=== PATIENT | female | born 2005 | race Two or more races ===

== ENCOUNTER 2024-09-16 09:33 | Emergency (ER) | payer OTHER, MEDICAID ==
[~2024-09-16] VITALS: Ht 157.5 cm; Wt 52.7 kg
[2024-09-16 09:55] LABS: Basophils # (auto) 0 10 ^3/uL (0-0.2); Basophils % (auto) 0.4 % (0.0-2.0); Eosinophils # (auto) 0 10 ^3/uL (0-0.8); Eosinophils % (auto) 0.3 % (0.0-7.0); Hematocrit 37.2 % (36.0-46.0); Lymphocytes # (auto) 1.8 10 ^3/uL (0.4-5.4); Lymphocytes % (auto) 23.7 % (10.0-50.0); Mean Corpuscular Hemoglobin 29.2 pg (28.0-32.0); Mean Corpuscular Volume 83.4 fL (80.0-100.0); Monocytes # (auto) 0.6 10 ^3/uL (0-1.3); Monocytes % (auto) 7.6 % (0.0-12.0); Neutrophils # (auto) 5.2 10 ^3/uL (1.6-8.6); Nucleated Red Blood Cells % 0.1 %; Platelet Count (auto) 176 10^3/uL (140-450); Red Blood Cells 4.46 10^6/uL (4.0-5.20); Red Cell Distribution Width 14.4 % (11.8-14.3); White Blood Cell 7.7 10^3/uL (4.4-10.8)
[2024-09-16 10:04] LABS: Chloride 105 mmol/L (98-107); Potassium 3.9 mmol/L (3.5-5.1); Sodium 138 mmol/L (136-145)
[2024-09-16 10:05] LABS: Anion Gap 8 (5-15); Carbon Dioxide 25 mmol/L (20-31)
[2024-09-16 10:06] LABS: Calcium 9.6 mg/dL (8.7-10.4)
[2024-09-16 10:10] LABS: Glucose 97 mg/dL (74-106)
[2024-09-16 10:11] LABS: BUN/Creatinine Ratio 12.1 (10.0-20.0); Blood Urea Nitrogen 7 mg/dL (9-23)
[2024-09-16 10:14] LABS: Urine Bacteria None Seen /hpf (None Seen)
[2024-09-16 10:24] LABS: Urine Blood Negative /uL (Negative); Urine Clarity Clear (Clear); Urine Color Light-Yellow (Yellow); Urine Mucus FEW (None Seen); Urine Protein, UAD Negative (Negative); Urine Specific Gravity 1.021 (1.001-1.035); Urine Squamous Epithelial Cell FEW /hpf (<5); Urine Urobilinogen Normal (Negative); Urine WBC 2 /HPF (0-5)
[2024-09-16 10:49] VITALS: BP 108/52; PULSE 70; RESP 16; TEMP 98.6; O2SAT 100
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
[2024-09-16] MEDS ORDERED: DOXY25TA33 PO (10:54)
[2024-09-16] MEDS ORDERED: ACET-1881 PO (10:54)
[2024-09-16] MEDS ORDERED: PYRI25TA23 PO (10:54)
== END 2024-09-16 10:57 | disposition home or self-care (01) ==
LOC: ER 09:33
DX: O9A.211 Injury, poisoning and certain other consequences of external causes complicating pregnancy, first trimester (principal); O26.891 Other specified pregnancy related conditions, first trimester; R10.30 Lower abdominal pain, unspecified; Z3A.00 Weeks of gestation of pregnancy not specified; Z79.899 Other long term (current) drug therapy; V49.49XA Driver injured in collision with other motor vehicles in traffic accident, initial encounter; Y93.89 Activity, other specified; Y92.89 Other specified places as the place of occurrence of the external cause; Y99.8 Other external cause status
CPT/HCPCS: 36415; 80048; 81001; 81025; 85025

== ENCOUNTER → 2024-09-22 | Outpatient (CLI) | payer OTHER, MEDICAID ==
[~2024-09-22] MED LIST: ACET-1881 PO; DOXY25TA33 PO; PYRI25TA23 PO
[2024-09-22 11:13] LABS: Basophils # (auto) 0 10 ^3/uL (0-0.2); Basophils % (auto) 0.3 % (0.0-2.0); Eosinophils # (auto) 0 10 ^3/uL (0-0.8); Eosinophils % (auto) 0.2 % (0.0-7.0); Hematocrit 40.7 % (36.0-46.0); Hemoglobin 13.7 g/dL (12.2-16.2); Lymphocytes # (auto) 1.5 10 ^3/uL (0.4-5.4); Lymphocytes % (auto) 16.5 % (10.0-50.0); Mean Corpuscular Hemoglobin 28.2 pg (28.0-32.0); Mean Corpuscular Hgb Conc. 33.6 g/dL (32.0-36.0); Mean Corpuscular Volume 84.1 fL (80.0-100.0); Monocytes # (auto) 0.5 10 ^3/uL (0-1.3); Monocytes % (auto) 5.7 % (0.0-12.0); Neutrophils % (auto) 77.3 % (37.0-80.0); Platelet Count (auto) 173 10^3/uL (140-450); Red Blood Cells 4.84 10^6/uL (4.0-5.20); Red Cell Distribution Width 14.8 % (11.8-14.3)
[2024-09-22 11:25] LABS: Alanine Aminotransferase 16 U/L (7-40); Albumin 4.6 g/dL (3.2-4.8); Alkaline Phosphatase 64 U/L (46-116); Anion Gap 8 (5-15); Bilirubin, Total 0.8 mg/dL (0.2-1.0); Calcium 9.7 mg/dL (8.7-10.4); Carbon Dioxide 24 mmol/L (20-31); Chloride 104 mmol/L (98-107); Glucose 90 mg/dL (74-106); Potassium 4.2 mmol/L (3.5-5.1); Total Protein 7.2 g/dL (5.7-8.2)
[2024-09-22 11:27] LABS: Aspartate Aminotransferase 13 U/L (13-40); Blood Urea Nitrogen 7 mg/dL (9-23); Sodium 136 mmol/L (136-145)
[2024-09-22 11:33] LABS: Thyroid Stimulating Hormone 0.54 uIU/mL (0.55-4.78)
== END | disposition home or self-care (01) ==
LOC: LAB 10:47
PROVIDERS: ATTEND Nurse Practitioner Family
DX: Z32.01 Encounter for pregnancy test, result positive (principal)
CPT/HCPCS: 36415; 80053; 84443; 84702; 85025

== ENCOUNTER → 2024-10-14 | Outpatient (CLI) | payer OTHER, MEDICAID ==
[2024-10-14 11:24] LABS: Basophils # (auto) 0 10 ^3/uL (0-0.2); Basophils % (auto) 0.3 % (0.0-2.0); Eosinophils # (auto) 0 10 ^3/uL (0-0.8); Eosinophils % (auto) 0.4 % (0.0-7.0); Hematocrit 39.2 % (36.0-46.0); Hemoglobin 13.5 g/dL (12.2-16.2); Lymphocytes # (auto) 1.4 10 ^3/uL (0.4-5.4); Lymphocytes % (auto) 18.4 % (10.0-50.0); Mean Corpuscular Hemoglobin 29.2 pg (28.0-32.0); Mean Corpuscular Hgb Conc. 34.4 g/dL (32.0-36.0); Mean Corpuscular Volume 85.1 fL (80.0-100.0); Monocytes # (auto) 0.4 10 ^3/uL (0-1.3); Monocytes % (auto) 5.5 % (0.0-12.0); Neutrophils # (auto) 5.6 10 ^3/uL (1.6-8.6); Neutrophils % (auto) 75.4 % (37.0-80.0); Nucleated Red Blood Cells % 0.1 %; Platelet Count (auto) 153 10^3/uL (140-450); Red Blood Cells 4.61 10^6/uL (4.0-5.20); Red Cell Distribution Width 15.7 % (11.8-14.3); White Blood Cell 7.4 10^3/uL (4.4-10.8)
[2024-10-14 11:38] LABS: Amphetamine Screen, Urine Neg (NEGATIVE); Barbiturate Scree,Urine Neg (NEGATIVE); Benzodiazephine Screen, Urine Neg (NEGATIVE); Cannabinoid Screen, Urine Neg (NEGATIVE); Cocaine Screen, Urine Neg (NEGATIVE); Opiate Scree,Urine Neg (NEGATIVE); Phencyclidine Screen, Urine Neg (NEGATIVE)
[2024-10-16 05:08] LABS: Chlamydia Trachomatis, NAA Negative (Negative); Neisseria gonorrhoeae, NAA Negative (Negative)
== END | disposition home or self-care (01) ==
LOC: LAB 10:03
PROVIDERS: ATTEND Obstetrics & Gynecology
DX: Z34.01 Encounter for supervision of normal first pregnancy, first trimester (principal); Z72.51 High risk heterosexual behavior; Z3A.12 12 weeks gestation of pregnancy
CPT/HCPCS: 36415; 80307; 83036; 84144; 84702; 85025; 86703; 86762; 86780; 86850; 86900; 86901; 87086; 87340

== ENCOUNTER 2025-02-09 06:34 | Outpatient (CLI) | payer OTHER, MEDICAID ==
[2025-02-09 06:58] LABS: Hematocrit 33.4 % (36.0-46.0); Hemoglobin 11.7 g/dL (12.2-16.2); Mean Corpuscular Hemoglobin 29.9 pg (28.0-32.0); Mean Corpuscular Volume 85.3 fL (80.0-100.0); Nucleated Red Blood Cells % 0.0 %
[2025-02-09 07:11] LABS: Alanine Aminotransferase 14 U/L (7-40); Alkaline Phosphatase 104 U/L (46-116); Anion Gap 10 (5-15); BUN/Creatinine Ratio 13.0 (10.0-20.0); Carbon Dioxide 23 mmol/L (20-31); Chloride 105 mmol/L (98-107); Glucose 88 mg/dL (74-106); Potassium 4.1 mmol/L (3.5-5.1); Sodium 138 mmol/L (136-145); Total Protein 7.2 g/dL (5.7-8.2)
[2025-02-09 07:12] LABS: Albumin 4.1 g/dL (3.2-4.8); Bilirubin, Total 0.4 mg/dL (0.2-1.0)
[2025-02-09 07:16] LABS: Blood Urea Nitrogen 7 mg/dL (9-23); Calcium 8.6 mg/dL (8.7-10.4)
[2025-02-11 02:07] LABS: Chlamydia Trachomatis, NAA Negative (Negative); Neisseria gonorrhoeae, NAA Negative (Negative)
== END 2025-02-09 17:00 | disposition home or self-care (01) ==
LOC: LAB 06:34
PROVIDERS: ATTEND Obstetrics & Gynecology
DX: Z34.00 Encounter for supervision of normal first pregnancy, unspecified trimester (principal); Z3A.00 Weeks of gestation of pregnancy not specified
CPT/HCPCS: 36415; 80053; 82951; 85025; 86780; 86850; 86900; 86901

== ENCOUNTER 2025-03-10 09:12 | Observation (INO) | payer OTHER, MEDICAID ==
--- NOTE | 2025-03-10 10:55 | DVH ---
OB ULTRASOUND, LIMITED CLINICAL INDICATION: nuchal cord TECHNIQUE: Multiple grayscale ultrasound and M-mode images were obtained of the pelvis for evaluation of intrauterine . COMPARISON: None FINDINGS: A single living fetus is seen in cephalic presentation. Biophysical profile: 12/26 breathin movements: 2 tone: 2 Amniotic fluid: 2 Placenta: Anterior. Possible placental lakes are seen. Amniotic fluid: Visibly normal. HEAVENLY 19.3 cm heart rate: 134 beats/min. A complete anatomic survey was not performed on this exam. There appears to be a nuchal cord. IMPRESSION: 1. Biophysical profile: 12/26. 2. There appears to be a nuchal cord. 3. A few small placental lakes.
[2025-03-10 11:03] LABS: Hematocrit 33.9 % (36.0-46.0); Hemoglobin 11.1 g/dL (12.2-16.2); Mean Corpuscular Hemoglobin 27.0 pg (28.0-32.0); Mean Corpuscular Volume 82.5 fL (80.0-100.0); Nucleated Red Blood Cells % 0.1 %
[2025-03-10 11:12] LABS: Urine Protein, UAD TRACE (Negative)
[2025-03-10 11:14] LABS: Protein, Urine 20.4 mg/dL (1-14)
[2025-03-10] MEDS ORDERED: PREN-96 PO (11:16)
[2025-03-10 11:18] LABS: Alanine Aminotransferase 17 U/L (7-40); Albumin 4.1 g/dL (3.2-4.8); Alkaline Phosphatase 151 U/L (46-116); Anion Gap 10 (5-15); BUN/Creatinine Ratio 10.7 (10.0-20.0); Blood Urea Nitrogen 6 mg/dL (9-23); Calcium 8.9 mg/dL (8.7-10.4); Carbon Dioxide 24 mmol/L (20-31); Chloride 105 mmol/L (98-107); Glucose 87 mg/dL (74-106); Potassium 4.3 mmol/L (3.5-5.1); Sodium 139 mmol/L (136-145); Total Protein 7.2 g/dL (5.7-8.2)
[2025-03-10 11:19] LABS: Bilirubin, Total 0.4 mg/dL (0.2-1.0)
[2025-03-10 11:24] LABS: INR 0.9 (0.9-1.15); Partial Thromboplastin Time 24.7 SEC (24.5-34.5); Prothrombin Time 9.6 sec (9.3-11.8)
[2025-03-10 11:27] LABS: Uric Acid 3.4 mg/dL (3.1-7.8)
--- NOTE | 2025-03-10 12:43 | DVHDS2 ---
Physician Discharge Progress N Final Diagnosis: testing for NCx1 ruled out preeclampsia Operations or Procedures: Operations or Procedures 19yo IUP@33.0wks, pt send down from Dr. Parker's office for NST/BPP for NCx1 and RUQ pain/bilateral shoulder pain. +FM, denies UCs/LOF/VB/vision changes/TELLES. VSS, normotensive, per RN NST reactive per RN FKC/PTL/PreE precautions reviewed Dr. Parker consulted, agrees with POC. Laboratory Tests Test 03/10/25 10:00 03/10/25 10:44 Range/Units Urine Color Yellow Yellow Urine Clarity Clear Clear Urine pH 6.5 5.0-9.0 Urine Specific [place] 1.020 1.001-1.035 Urine Protein Trace H Negative Urine Ketones Negative Negative Urine Blood Negative Negative /uL Urine Nitrite Negative Negative Urine Bilirubin Negative Negative Urine Urobilinogen Normal Negative mg/dL Urine Leukocyte Esterase 2+ Negative /uL Urine RBC 3 0 - 4 /hpf Urine Microscopic WBC 11 H 0-5 /HPF Urine Squamous Epithelial Cells Mod <5 /hpf Urine Bacteria Many H None Seen /hpf Urine Mucus Few None Seen Urine Creatinine 124.70 30.0-125.0 mg/dL Urine Protein/Creatinine Ratio 0.16 Urine Glucose 2+ H Normal mg/dL Urine Total Protein 20.4 H 1-14 mg/dL White Blood Count 6.3 4.4-10.8 10^3/uL Red Blood Count 4.10 4.0-5.20 10^6/uL Hemoglobin 11.1 L 12.2-16.2 g/dL Hematocrit 33.9 L 36.0-46.0 % Mean Corpuscular Volume 82.5 80.0-100.0 fL Mean Corpuscular Hemoglobin 27.0 L 28.0-32.0 pg Mean Corpuscular Hemoglobin Concent 32.7 32.0-36.0 g/dL Red Cell Distribution Width 13.3 11.8-14.3 % Platelet Count 188 140-450 10^3/uL Mean Platelet Volume 9.7 6.9-10.8 fL Neutrophils (%) (Auto) 69.0 37.0-80.0 % Lymphocytes (%) (Auto) 23.0 10.0-50.0 % Monocytes (%) (Auto) 7.4 0.0-12.0 % Eosinophils (%) (Auto) 0.3 0.0-7.0 % Basophils (%) (Auto) 0.3 0.0-2.0 % Neutrophils # (Auto) 4.3 1.6-8.6 10 ^3/uL Lymphocytes # (Auto) 1.4 0.4-5.4 10 ^3/uL Monocytes # (Auto) 0.5 0-1.3 10 ^3/uL Eosinophils # (Auto) 0 0-0.8 10 ^3/uL Basophils # (Auto) 0 0-0.2 10 ^3/uL Nucleated Red Blood Cells 0.1 % Prothrombin Time 9.6 9.3-11.8 sec Prothrombin Time INR 0.90 0.9-1.15 Activated Partial Thromboplast Time 24.7 24.5-34.5 SEC Sodium Level 139 136-145 mmol/L Potassium Level 4.3 3.5-5.1 mmol/L Chloride Level 105 98-107 mmol/L Carbon Dioxide Level 24 20-31 mmol/L Anion Gap 10 5-15 Blood Urea Nitrogen 6 L 9-23 mg/dL Creatinine 0.56 0.550-1.02 mg/dL Glomerular Filtration Rate Calc 134 >90 mL/min BUN/Creatinine Ratio 10.7 10.0-20.0 Serum Glucose 87 74-106 mg/dL Uric Acid 3.4 3.1-7.8 mg/dL Calcium Level 8.9 8.7-10.4 mg/dL Total Bilirubin 0.4 0.2-1.0 mg/dL Aspartate Amino Transferase (AST) 23 13-40 U/L Alanine Aminotransferase (ALT) 17 7-40 U/L Alkaline Phosphatase 151 H 46-116 U/L Total Protein 7.2 5.7-8.2 g/dL Albumin 4.1 3.2-4.8 g/dL Other Interventions Other Interventions [address] [address] Ph: [phone] DIAGNOSTIC IMAGING Diagnostic Imaging Report : [id number] Signed PATIENT: SHAHRIAR MENCHACA ACCT: [id number] UNIT: [id number] : 2005 LOC: [facility] ROOM / BED: TRIAGE3 / A AGE / SEX: 19 / F ADM STATUS: ADM IN SERVICE 0924 ORDERING PHYSICIAN: LIBERTAD VÁZQUEZ CNM PROCEDURE(s): BPP - BIOPHYSICAL PROFILE REASON: nuchal cord ORDER NUMBER(s): [id number], ACCESSION NUMBER(s): [id number] OB ULTRASOUND, LIMITED CLINICAL INDICATION: nuchal cord TECHNIQUE: Multiple grayscale ultrasound and M-mode images were obtained of the pelvis for evaluation of intrauterine . COMPARISON: None FINDINGS: A single living fetus is seen in cephalic presentation. Biophysical profile: 12/26 breathin movements: 2 tone: 2 Amniotic fluid: 2 Placenta: Anterior. Possible placental lakes are seen. Amniotic fluid: Visibly normal. HEAVENLY 19.3 cm heart rate: 134 beats/min. A complete anatomic survey was not performed on this exam. There appears to be a nuchal cord. IMPRESSION: 1. Biophysical profile: 12/26. 2. There appears to be a nuchal cord. 3. A few small placental lakes. ATED BY: HUMZA GREER MD DICTATED DATE/TIME: 03/10/25 105 SIGNED BY: HUMZA GREER MD SIGNED DATE/TIME: 03/10/25 105 CC: Condition on Discharge: Stable Disposition: Home Discharge Instructions: Diet: Regular Activity: No Restrictions, As Tolerated Medications: see med list Follow Up Care: Specialist: f/u in 1 wk for NST/BPP for NCx1 Discharge Statement: "Patient was advised to return to the ER or call 911 if any headaches, dizziness, shortness of breath, chest pain, abdominal pain, bleeding, fevers, or worsening of medical condition. Patient was counseled about treatment plan, medications, possible side effects, patientverbalized understanding. All questions were answered to the best of my ability. This discharge took greater then 30 minutes in planning, reviewing documentation, counseling the patient, and discussing with other team members." Visit Coding OBGYN Date of Service: Mar 10, 2025 Billing Provider: LIBERTAD VÁZQUEZ CNM STAMPER BLOCKER Common Visit Codes: 37142-MBHBFZT OBS CARE (HIGH) STAMPER BLOCKER Procedure Codes: 37500-25- NON-STRESS TEST LIBERTAD VÁZQUEZ CNM Mar 10, 2025 12:43
== END 2025-03-10 12:10 | disposition home or self-care (01) ==
LOC: LDRP 09:12
PROVIDERS: ADMIT Obstetrics & Gynecology; ATTEND Obstetrics & Gynecology
DX: O69.81X0 Labor and delivery complicated by cord around neck, without compression, not applicable or unspecified (principal); R79.1 Abnormal coagulation profile; Z3A.33 33 weeks gestation of pregnancy; Z98.890 Other specified postprocedural states
CPT/HCPCS: 36415; 76818; 80053; 81001; 81002; 82570; 84156; 84550; 85025; 85610; 85730; 94760; G0378; 59025; 76819

== ENCOUNTER 2025-03-15 08:17 | Observation (INO) | payer OTHER, MEDICAID ==
[~2025-03-15 08:17] MED LIST changes: +PREN-96 PO
--- NOTE | 2025-03-15 10:20 | DVH ---
BIOPHYSICAL PROFILE HISTORY: Nuchal TECHNIQUE: Multiple transabdominal real-time grayscale sonographic images through the gravid uterus of the fetus with duplex Doppler color flow and M-mode spectral analysis FINDINGS: BIOPHYSICAL PROFILE: breathing score: 2 movement score: 2 tone score: 2 Quantitative HEAVENLY score: 2 (HEAVNELY: 17.5 Cm MVP: 5.0 cm.) Total score: 8/8 The cervix obscured Single live fetus in cephalic presentation. heart rate 133 beats per minute. Anterior Grade 2 placenta without previa or abruption Single live fetus at 33 weeks 5 days Biophysical profile score 8/8 corresponding to an SHARON of 04/28/2025. IMPRESSION: 1. Biophysical profile score: 8/8 2. FHR: 133 bpm
--- NOTE | 2025-03-16 12:24 | DVHDS2 ---
Physician Discharge Progress N Final Diagnosis: n,v,dec [id number] Operations or Procedures: Operations or Procedures nst reactive reviwed,sono Condition on Discharge: Good Disposition: Home Discharge Instructions: Diet: Regular Activity: No Restrictions, As Tolerated Medications: na Follow Up Care: Specialist: 2d Discharge Statement: "Patient was advised to return to the ER or call 911 if any headaches, dizziness, shortness of breath, chest pain, abdominal pain, bleeding, fevers, or worsening of medical condition. Patient was counseled about treatment plan, medications, possible side effects, patientverbalized understanding. All questions were answered to the best of my ability. This discharge took greater then 30 minutes in planning, reviewing documentation, counseling the patient, and discussing with other team members." Visit Coding OBGYN Date of Service: Mar 15, 2025 Billing Provider: KYLER TAM DO CLINICAL DATA ANALYST Common Visit Codes: [id number] OBS CARE (HIGH) CLINICAL DATA ANALYST Procedure Codes: 07477-94- NON-STRESS TEST KYLER TAM DO Mar 16, 2025 12:24
== END 2025-03-15 10:31 | disposition home or self-care (01) ==
LOC: LDRP 08:57
PROVIDERS: ADMIT Obstetrics & Gynecology; ATTEND Obstetrics & Gynecology
DX: O36.8130 Decreased fetal movements, third trimester, not applicable or unspecified (principal); Z3A.33 33 weeks gestation of pregnancy; Z98.890 Other specified postprocedural states
CPT/HCPCS: 76818; 81002; 94760; G0378; 59025; 76819

== ENCOUNTER 2025-03-30 13:33 | Outpatient (CLI) | payer OTHER, MEDICAID ==
[2025-03-30 13:55] LABS: Hemoglobin 10.4 g/dL (12.2-16.2); Nucleated Red Blood Cells % 0.1 %
[2025-03-30 13:57] LABS: Hematocrit 31.4 % (36.0-46.0); Mean Corpuscular Hemoglobin 25.8 pg (28.0-32.0); Mean Corpuscular Volume 78.4 fL (80.0-100.0)
[2025-04-01 06:07] LABS: Chlamydia Trachomatis, NAA Negative (Negative); Neisseria gonorrhoeae, NAA Negative (Negative)
== END 2025-03-30 17:00 | disposition home or self-care (01) ==
LOC: LAB 13:33
PROVIDERS: ATTEND Obstetrics & Gynecology
DX: Z34.00 Encounter for supervision of normal first pregnancy, unspecified trimester (principal); Z11.3 Encounter for screening for infections with a predominantly sexual mode of transmission; Z72.51 High risk heterosexual behavior; Z3A.00 Weeks of gestation of pregnancy not specified
CPT/HCPCS: 36415; 85025; 86780

== ENCOUNTER 2025-03-31 12:06 | Observation (INO) | payer OTHER, MEDICAID ==
[2025-03-31] MEDS ORDERED: LACTATED RINGER'S 1,000 ML IV ONE (13:15)
--- NOTE | 2025-03-31 14:25 | DVHDS2 ---
Physician Discharge Progress N Final Diagnosis: Round ligament pain Operations or Procedures: Operations or Procedures S: 19yo IUP@36.0wks presents to OB triage with c/o uterine cramps on the right side since 2100 last night. +FM, denies UCs/LOF/VB/TELLES/vision changes/RUQ pain. Pt denies UTI s/sx or vaginitis s/sx. PNC with Dr. Parker at [facility] OB office, uncomplicated. O: VSS NST reactive TOCO: irregular UCs PO hydration A: 19yo IUP@36.0wks Round ligament pain P: D/C home FKC/PTL/preE precautions reviewed. Recommended wearing support belt and stretches for round ligament pain. f/u with Dr. Parker in office in 1wk Dr. Parker consulted, agrees with POC. Condition on Discharge: Stable Disposition: Home Discharge Instructions: Diet: Regular Activity: No Restrictions, As Tolerated Medications: see med list Follow Up Care: Specialist: f/u with Dr. Parker in office in 1wk Discharge Statement: "Patient was advised to return to the ER or call 911 if any headaches, dizziness, shortness of breath, chest pain, abdominal pain, bleeding, fevers, or worsening of medical condition. Patient was counseled about treatment plan, medications, possible side effects, patientverbalized understanding. All questions were answered to the best of my ability. This discharge took greater then 30 minutes in planning, reviewing documentation, counseling the patient, and discussing with other team members." Visit Coding OBGYN Date of Service: Mar 31, 2025 Billing Provider: LIBERTAD VÁZQUEZ CNM CHARGING CAR OPERATOR Common Visit Codes: [id number] INP/OBS CARE (MOD) CHARGING CAR OPERATOR Procedure Codes: 90156-41- NON-STRESS TEST LIBERTAD VÁZQUEZ CNM Mar 31, 2025 14:25
== END 2025-03-31 14:50 | disposition home or self-care (01) ==
LOC: LDRP 12:06
PROVIDERS: ADMIT Obstetrics & Gynecology; ATTEND Obstetrics & Gynecology
DX: O26.893 Other specified pregnancy related conditions, third trimester (principal); R10.20 Pelvic and perineal pain unspecified side; Z98.890 Other specified postprocedural states
CPT/HCPCS: 59025; G0378

== ENCOUNTER 2025-04-18 00:34 | Observation (INO) | payer OTHER, MEDICAID ==
[~2025-04-18] VITALS: Ht 157.5 cm; Wt 61.2 kg
--- NOTE | 2025-04-18 01:57 | DVH ---
BIOPHYSICAL PROFILE HISTORY: Decreased movement Comparison Study: US BIOPHYSICAL PROFILE on DOS: 03/15/25, US BIOPHYSICAL PROFILE on DOS: 03/10/25 TECHNIQUE: Multiple real-time grayscale sonographic images through the gravid uterus of the fetus with duplex Doppler color flow and M-mode spectral analysis FINDINGS: BIOPHYSICAL PROFILE: breathing score: 2 movement score: 2 tone score: 2 Quantitative HEAVENLY score: 2 (HEAVENLY: 16.6 Cm.) Total score: 8/8 The cervix is closed and Unremarkable Single live fetus in cephalic presentation. heart rate 141 beats per minute. Anterior placenta without previa or abruption. Few placental lakes noted. Nuchal cord noted. IMPRESSION: Biophysical profile score: 8/8. Nuchal cord noted.
--- NOTE | 2025-04-18 04:22 | DVHDS2 ---
Physician Discharge Progress N Final Diagnosis: IUP at 38w Prodromal Labor Category I FHR Tracing BioPhysical Profile 12/26 Operations or Procedures: Operations or Procedures S: 19yo G1, 0000 with EDC of 04/28/2025, EGA 38w 4d presents to the Place with report of contractions that started at 9pm. She reports decreased movements, no VB, no leakage of fluids, no TELLES, vision changes or epigastric pain. No urinary symptoms Receiving care Dr. Parker. course is unremarkable. Reports no past surgery. She reports no toxic habit or IPV. Lives with partner. ROS: Neurological: Unremarkable except as noted in Presenting problem/ CC above Respiratory: reports no respiratory symptom, no SOB Cardiovascular: no palpitation, chest pain or easy fatigue : No vaginal or urinary symptom O: PE: A&O x3, NAD, well groomed. pleasant. Appropriate and normal mood and affect Afebrile, VSS Respiration unlabored Heart and lungs sounds: normal Abdomen: Gravid, non-tender to palpation. Cephalic presentation Extremities: No edema EFM: Erskine: contractions q 2-3 min x secs, mild -mod to palpation FHR baseline 145bpm with moderate variability and accelerations, no deceleration VE by RN: 1cm/50%/-3 A: IUP at 38w 4d Category I FHR tracing P: EFM US for BPP Oral hydration Ambulate x 1 hour and re-assess cervical status 2hrs from initial VE Re-Assessment 03:40 S: States she has been feeling movement more since arrival on the unit; [place] from this hospital O: VE: 1cm/50%/-2 / cervix posterior-midposition,soft in consistency EFM Erskine: Contractions q 3-6min [id number], moderate to palpation US: FHR baseline 135bpm with moderate variability and acceleration, no deceleration A: IUP at 38w 4d Normal BPP Prodromal labor P: Discharge home Return to hosp if SROM, decreased FM, vag bleeding or any other urgent or emergency symptom Keep appointment with OB provider as scheduled on 04/21/25; seek care sooner if needed Return for surveillance on 04/21/25 if undelivered; seek care sooner if needed Educated on pain relief measures, need for adequate hydration - advised to increased water intake, warm bath /shower, relaxation, rest and sleep. 3rd trimester emergency S&S FMC, labor & pre-eclampsia precautions reviewed with pt; advised to seek health care if any Condition on Discharge: Stable Disposition: Home Discharge Instructions: Diet: Regular Activity: No Restrictions, As Tolerated Activity comment: Balance activity with rest periods Follow Up/Referral: Keep appointment with OB provider as scheduled on 04/21/25; seek care sooner if needed Return for surveillance on 04/21/25 if undelivered; seek care sooner if needed Medications: None Follow Up Care: Discharge Statement: Educated on pain relief measures, need for adequate hydration - advised to increased water intake, warm bath /shower, relaxation, rest and sleep. 3rd trimester emergency S&S FMC, labor & pre-eclampsia precautions reviewed with pt; advised to seek health care if any "Patient was advised to return to the ER or call 911 if any headaches, dizziness, shortness of breath, chest pain, abdominal pain, bleeding, fevers, or worsening of medical condition. Patient was counseled about treatment plan, medications, possible side effects, patientverbalized understanding. All questions were answered to the best of my ability. This discharge took greater then 30 minutes in planning, reviewing documentation, counseling the patient, and discussing with other team members." Visit Coding OBGYN Date of Service: Apr 18, 2025 Billing Provider: GUERITA DIXON CNM PATTERN WEAVER Common Visit Codes: 62551-MNG/OBS SAME DATE (HIGH) PATTERN WEAVER Procedure Codes: 24150-42- NON-STRESS TEST GUERITA DIXON CNM Apr 18, 2025 04:22
== END 2025-04-18 04:27 | disposition home or self-care (01) ==
LOC: LDRP 00:34
PROVIDERS: ADMIT Obstetrics & Gynecology; ATTEND Obstetrics & Gynecology
DX: O36.8130 Decreased fetal movements, third trimester, not applicable or unspecified (principal); O62.0 Primary inadequate contractions; Z3A.38 38 weeks gestation of pregnancy; Z79.899 Other long term (current) drug therapy; Z98.890 Other specified postprocedural states
CPT/HCPCS: 76818; 81002; 94760; A4649; G0378; 59025; 76819

== ENCOUNTER 2025-04-21 12:00 | Inpatient (IN) | payer OTHER ==
[~2025-04-21] VITALS: Ht 157.5 cm; Wt 62.1 kg
[2025-04-21 13:37] LABS: Hematocrit 30.9 % (36.0-46.0); Hemoglobin 10.3 g/dL (12.2-16.2); Mean Corpuscular Hemoglobin 25.8 pg (28.0-32.0); Mean Corpuscular Volume 77.5 fL (80.0-100.0); Nucleated Red Blood Cells % 0.1 %
[2025-04-21 13:51] LABS: Alanine Aminotransferase 79 U/L (7-40); Albumin 3.8 g/dL (3.2-4.8); Alkaline Phosphatase 278 U/L (46-116); Anion Gap 9 (5-15); BUN/Creatinine Ratio 16.9 (10.0-20.0); Blood Urea Nitrogen 10 mg/dL (9-23); Calcium 8.9 mg/dL (8.7-10.4); Carbon Dioxide 23 mmol/L (20-31); Chloride 103 mmol/L (98-107); Glucose 75 mg/dL (74-106); Potassium 3.9 mmol/L (3.5-5.1); Sodium 135 mmol/L (136-145); Total Protein 6.7 g/dL (5.7-8.2); Uric Acid 5.0 mg/dL (3.1-7.8)
[2025-04-21 13:52] LABS: Bilirubin, Total 0.5 mg/dL (0.2-1.0); INR 0.9 (0.9-1.15); Partial Thromboplastin Time 25.4 SEC (24.5-34.5); Prothrombin Time 9.6 sec (9.3-11.8)
[2025-04-21 14:13] LABS: Urine Budding Yeast OCCASIONAL /hpf (None Seen); Urine Protein, UAD Negative (Negative)
[2025-04-21 14:24] LABS: Protein, Urine 11.7 mg/dL (1-14)
--- NOTE | 2025-04-21 14:41 | DVH ---
BIOPHYSICAL PROFILE HISTORY: Nuchal cord Comparison Study: US BIOPHYSICAL PROFILE on DOS: 04/18/25, US BIOPHYSICAL PROFILE on DOS: 03/15/25, US BIOPHYSICAL PROFILE on DOS: 03/10/25 TECHNIQUE: Multiple real-time grayscale sonographic images through the gravid uterus of the fetus with duplex Doppler color flow and M-mode spectral analysis FINDINGS: BIOPHYSICAL PROFILE: breathing score: 2 movement score: 2 tone score: 2 Quantitative HEAVENLY score: 2 (HEAVENLY: 14.5 Cm.) Total score: 8 Single live fetus in cephalic presentation. heart rate 132 beats per minute. Anterior placenta without previa or abruption Single live fetus at Biophysical profile score 8/8 corresponding to an SHARON of No evidence of nuchal cord. IMPRESSION: Biophysical profile score: 8/8 No evidence of nuchal cord
[2025-04-21] MEDS: LACTATED RINGER'S 1,000 ML IV SCH (15:15)
[2025-04-21] MEDS ORDERED: fentaNYL CITRATE 100 MCG/2 ML VL ONE (15:17)
[2025-04-21] MEDS ORDERED: PROPOFOL 10 MG/ML 20 ML IV ONE ×2 (15:18→16:07)
[2025-04-21] MEDS ORDERED: ONDANSETRON HCL 4 MG/2 ML VIAL ONE (15:18)
[2025-04-21] MEDS ORDERED: MIDAZOLAM HCL 2MG/2ML 2ml VIAL (1mg/ml) ONE (15:18)
--- NOTE | 2025-04-21 15:50 | DVHHP ---
ADMIT DATE: 04/21/2025 CHIEF COMPLAINT: Elevated blood pressure, epigastric pain, not feeling well. HISTORY OF PRESENT ILLNESS: The patient is a 19-year-old 1, para 0 with EDC 19, estimated gestational age of 39 weeks, admitted for suspected HELLP syndrome as well as cholestasis of . The patient complained of itching today and epigastric pain. Baby was approximately 6 pounds. The patient is remote from delivery. Subsequently, the patient was given the option of primary , which she opted for. PAST MEDICAL HISTORY: None. PAST SURGICAL HISTORY: None. SOCIAL HISTORY: None. FAMILY HISTORY: None. OBSTETRIC AND GYNECOLOGIC HISTORY: Primigravida. ALLERGIES: No known drug allergies. REVIEW OF SYSTEMS: Consistent with HPI. PHYSICAL EXAMINATION: VITAL SIGNS: Stable, afebrile. HEENT: Within normal limits. CARDIOVASCULAR: Regular rate and rhythm. LUNGS: Clear to auscultation. BREASTS: Symmetrical. No masses. ABDOMEN: Gravid. Estimated weight 6 pounds. PELVIC: 1 cm, 50%, -3. EXTREMITIES: No clubbing, cyanosis, or edema. IMPRESSION: * Intrauterine at 39+ weeks with cholestasis of . * Impending HELLP. PLAN: Primary low transverse section. Informed consent obtained. Risks and complications of surgery including infection, bleeding, hematoma formation, injury to bowel or bladder, surrounding organ, possibility of DVT, pulmonary embolism, and risks of general anesthesia were discussed. Options reviewed. All questions answered. The patient fully understands. She wishes to proceed with planned procedure. DO RENETTA Hendricks/RAMESH TID: [id number] RECEIPT: [id number]
[2025-04-21] MEDS ORDERED: MEPERIDINE HCL (25 MG/ML) 1ML VIAL ONE (16:11)
[2025-04-21] MEDS: CARBOPROST TROMETHAMINE 250 MCG/1ML VIAL IM ONE (16:17)
--- NOTE | 2025-04-21 16:29 | POSTOP ---
Post-Operative Note Post-Operative Note Preop Diagnosis IUP AT 39WKS WITH HELLP SYNDROME,CHOLESTASIS OF PREG Postop Diagnosis: SAME,NUCHAL CORDX1,MECONIUM Operation performed PLTCS Specimen BABY GIRL,APGARS 8-8,VC,MEC,NUCHAL CORD Anesthesia: General Anesthesiologist: IRA ROLLINS Blood Loss(fluid mgmt) 800ML Surgeon Kyler Parker Front Desk Auxiliary MONCIO Implant NA Complications & Mgmt NONE Date 04/21/25 Time 16:27 Visit Coding OBGYN Date of Service: Apr 21, 2025 Billing Provider: KYLER PARKER DO ROOTER OPERATOR Common Visit Codes: [id number] INP/OBS CARE (HIGH) ROOTER OPERATOR Procedure Codes: [id number] DELIVERY ONLY KYLER PARKER DO Apr 21, 2025 16:29
[2025-04-21] MEDS ORDERED: ceFAZolin 1GM/50ML 50 ML IV SCH (16:30)
[2025-04-21] MEDS: GUM (CHEWING) 1 GUM CHEW CHEW ONE (16:30)
[2025-04-21] MEDS: LACT. RINGERS/OXYTOCIN 20UNITS 1,000 ML IV ONE (16:30)
[2025-04-21] MEDS ORDERED: MORPHINE SULFATE 4 MG/ML SYR/VIAL IV PRN (16:30)
--- NOTE | 2025-04-21 16:33 | DVHOP2 ---
Operative Report DATE OF OPERATION: 04/21/25 PREOPERATIVE DIAGNOSES: Term WITH HELLP SYNDROME ,CHOLESTASIS OF PREG POSTOPERATIVE DIAGNOSES: SAME,MECONIUM,NUCHAL CORD SURGEON: Shanel Parker D.O./MONICO ANESTHESIOLOGIST: CONRAD ROLLINS TYPE OF ANESTHESIA : GENERAL CONSENT: The patient was informed of the risks and benefits of the procedure. The patient was informed of the risks and benefits of the procedure. These include but are not limited to , complications of anesthesia, postoperative infection, incomplete relief of symptoms, recurrence of symptoms, damage to blood vessels, nerves and tendons, deep venous thrombosis, pulmonary embolism and possible need for repeat surgery in the future. FINDINGS: Baby [F] with Apgars of [8] and [8]. Grossly normal appearing tubes and ovaries.MECONIUM,NUCHAL CORD PROCEDURES: Primary low transverse section. PROCEDURE IN DETAIL: The patient was taken to the operating room. SHE WAS PLACED UNDER GENERAL ANESTH AFTER BEING PREPPED AND DRAPED. She was then placed in supine position with a leftward tilt. A Pfannenstiel skin incision was made 2 cm above the symphysis pubis. This incision was carried to the underlying layer of fascia. The fascia was nicked in the midline. The incision was extended laterally. The superior aspect of the fascial incision was grasped and elevated. The same procedure was done to the inferior aspect of the fascial incision. The rectus muscles were then in the midline. Peritoneum was identified and entered. Peritoneal incision was extended superiorly and inferiorly with good visualization of the bladder. Bladder blade was inserted. Vesicouterine peritoneum was identified and entered. Lower uterine segment was incised in a transverse fashion. The was delivered from vertex presentation. Infant was baby [F] with Apgars [8] and [8]. Placenta was then removed manually. Uterus was exteriorized and cleared of all clots and debris. The incision was repaired using 0 Vicryl in a double-layered fashion. No bleeding was noted. Uterus was then returned to the abdomen. The gutters were cleared off all clots and debris. Peritoneum was closed using 0 Vicryl, fascia was closed using 0 Maxon, and skin was closed using alexa. The patient tolerated the procedure well. She was taken to the recovery room in stable condition. ESTIMATED BLOOD LOSS: Estimated blood loss was noted to be 800 mL. Visit Coding OBGYN Date of Service: Apr 21, 2025 Billing Provider: SHANEL PARKER DO BOILER SERVICE TECHNICIAN Common Visit Codes: [id number] INP/OBS CARE (HIGH) BOILER SERVICE TECHNICIAN Procedure Codes: [id number] DELIVERY ONLY SHANEL PARKER DO Apr 21, 2025 16:33
[2025-04-21] MEDS ORDERED: HYDR-4072 PO (16:35)
[2025-04-21] MEDS ORDERED: DOCU-94 PO (16:35)
[2025-04-21] MEDS ORDERED: IBUP-1456 PO (16:35)
[2025-04-21] MEDS ORDERED: DIPHENOXYLATE W/ATROPINE 2.5 MG TAB ONE (16:41)
[2025-04-21 16:56] VITALS: PULSE 64; RESP 15; O2SAT 100
[2025-04-21] MEDS ORDERED: METOCLOPRAMIDE HCL 5MG/ml INJ 2ml VIAL IV PRN (17:15)
[2025-04-21] MEDS ORDERED: HYDROmorphone HCL 2 MG/ML VL/or syr IV PRN (17:15)
[2025-04-21] MEDS ORDERED: ACETAMINOPHEN IV 1000 MG/100ML (10MG/ML) IV PRN (17:15)
[2025-04-21] MEDS ORDERED: MEPERIDINE HCL (25 MG/ML) 1ML VIAL IV PRN (17:15)
[2025-04-21] MEDS ORDERED: ONDANSETRON HCL 4 MG/2 ML VIAL IV PRN (17:15)
[2025-04-21] MEDS: DIPHENOXYLATE W/ATROPINE 2.5 MG TAB PO ONE (17:17)
[2025-04-21] MEDS: ONDANSETRON HCL 4 MG/2 ML VIAL IV PRN (17:30)
[2025-04-21 17:35] VITALS: BP 141/90; PULSE 60; RESP 16; TEMP 97.6; O2SAT 96
[2025-04-21] MEDS: LACTATED RINGER'S 1,000 ML IV ONE (18:11)
[2025-04-21] MEDS: ceFAZolin 2 GM/D5W50ml 50 ML IV ONE (18:11)
[2025-04-21] MEDS: SUCCINYLCHOLINE CHLORIDE 20 MG/ML 10ML VIAL IV ONE (18:12)
[2025-04-21 18:13] LABS: Amphetamine Screen, Urine Neg (NEGATIVE); Barbiturate Scree,Urine Neg (NEGATIVE); Benzodiazephine Screen, Urine Neg (NEGATIVE); Cannabinoid Screen, Urine Neg (NEGATIVE); Cocaine Screen, Urine Neg (NEGATIVE); Opiate Scree,Urine Neg (NEGATIVE); Phencyclidine Screen, Urine Neg (NEGATIVE)
[2025-04-21] MEDS: ACETAMINOPHEN IV 1000 MG/100ML (10MG/ML) IV PRN (18:58)
[2025-04-21 19:08] LABS: Hematocrit 36.2 % (36.0-46.0); Nucleated Red Blood Cells % 0.2 %
[2025-04-21 19:10] LABS: Hemoglobin 11.4 g/dL (12.2-16.2); Mean Corpuscular Hemoglobin 24.9 pg (28.0-32.0); Mean Corpuscular Volume 79.0 fL (80.0-100.0)
[2025-04-21 19:22] LABS: Albumin 3.7 g/dL (3.2-4.8); Anion Gap 12 (5-15); BUN/Creatinine Ratio 10.3 (10.0-20.0); Calcium 9.1 mg/dL (8.7-10.4); Carbon Dioxide 22 mmol/L (20-31); Chloride 105 mmol/L (98-107); Glucose 80 mg/dL (74-106); Potassium 4.1 mmol/L (3.5-5.1); Sodium 139 mmol/L (136-145); Total Protein 6.7 g/dL (5.7-8.2)
[2025-04-21 19:23] LABS: Bilirubin, Total 0.6 mg/dL (0.2-1.0)
[2025-04-21 19:24] LABS: Alanine Aminotransferase 79 U/L (7-40); Alkaline Phosphatase 278 U/L (46-116); Blood Urea Nitrogen 6 mg/dL (9-23)
[2025-04-21 19:40] LABS: INR 0.89 (0.9-1.15); Partial Thromboplastin Time 25.1 SEC (24.5-34.5); Prothrombin Time 9.5 sec (9.3-11.8)
[2025-04-21 20:03] LABS: Fibrinogen 472.0 mg/dL (177-375)
[2025-04-21] MEDS: HYDROmorphone HCL 2 MG/ML VL/or syr IV PRN (20:08)
[2025-04-21 23:00] VITALS: BP 107/67; PULSE 82; RESP 17; TEMP 98.9; O2SAT 96
[2025-04-21] MEDS: ceFAZolin 1GM/50ML 50 ML IV SCH (23:26)
[2025-04-21] MEDS: diphenhydrAMINE HCL 50 MG/1 ML VL IV ONE (23:30)
[2025-04-22] VITALS (7 sets, daily range): BP systolic 107–136; BP diastolic 64–87; PULSE 77–102; RESP 16–20; TEMP 97.9–99.1; O2SAT 94–96
[2025-04-22] MEDS: AMMONIA 0.33 ML INHALANT IN ONE (05:13)
--- NOTE | 2025-04-22 05:28 | DVHPN2 ---
Progress Note Date Seen: Apr 22, 2025 Subjective S: Pt tolerating clear liquids, pt states she is light headed but was able to get up to ambulate at 0510, voiding well. Passing gas. Exclusively , states baby is latching and voiding well, next feed at 0510. vital signs Vital Sign Date Time Temp Pulse Resp B/P (MAP) Pulse Ox O2 Delivery O2 Flow Rate FiO2 04/22/25 03:30 81 16 110/71 04/22/25 03:00 98.9 96 98.9 04/21/25 19:00 Room Air 04/21/25 17:05 0 99 Total Intake and Output 04/21/25 04/21/25 04/22/25 15:00 23:00 07:00 Output Total 2225 ml Balance -2225 ml medications Current Medications Medications Dose Ordered Sig/Shaggy Route Start Time Stop Time Status Last Admin Dose Admin Lactated Ringer's 1,000 ml @ 125 mls/hr Q8H IV 04/21/25 15:15 Morphine Sulfate 2 mg Q4HP PRN IV 04/21/25 16:30 Ondansetron HCl 4 mg Q4HP PRN IV 04/21/25 16:30 04/21/25 17:30 4 MG Acetaminophen 1,000 mg Q8HPRN PRN IV 04/21/25 18:00 04/22/25 17:59 04/22/25 02:37 1,000 MG Cefazolin Sodium 50 ml @ 100 mls/hr Q8H IV 04/21/25 23:30 04/22/25 15:59 04/21/25 23:26 100 MLS/HR Hydromorphone HCl 1 mg Q2HPRN PRN IV 04/21/25 20:00 04/22/25 03:30 1 MG laboratory and microbiology Laboratory Tests 04/21/25 18:50 Test 04/21/25 18:50 Range/Units Serum Glucose 80 74-106 mg/dL Objective O: VSS Chest: heart and lung sounds normal Abd: soft, non-tender, fundus firm at U, active bowel sounds, no rebound or guarding Incision: sylke dressing open to air, C/D/I Ext: Non-tender, No edema Lochia: minimal See lab results Problems(with codes): (1) S/P primary low transverse Assessment/Plan A: 19 yo now via primary C/S due to HELLP syndrome Rh status + Breast feeding P: Pain control with PO medications PRN Colace for BM Labs to be drawn in the am. Continue with routine post-op PP care CNM co-managing patient with Dr. Parker Plan discussed with: Patient, Spouse Recommendations by RD: Increase Calorie Intake Comments: Continue to regular diet as tolerated Fluid Accumulation (N/A): N/A Reduced Prototype Assembler Electronics Strength (Non-Sev: N/A KRISTI MURRAY STUDENTMDW Apr 22, 2025 05:28
[2025-04-22 06:02] LABS: Hematocrit 28.9 % (36.0-46.0); Hemoglobin 9.4 g/dL (12.2-16.2); Mean Corpuscular Hemoglobin 25.0 pg (28.0-32.0); Mean Corpuscular Volume 77.1 fL (80.0-100.0); Nucleated Red Blood Cells % 0.0 %
[2025-04-22 06:24] LABS: Albumin 3.3 g/dL (3.2-4.8); Anion Gap 10 (5-15); BUN/Creatinine Ratio 10.4 (10.0-20.0); Bilirubin, Total 0.8 mg/dL (0.2-1.0); Carbon Dioxide 22 mmol/L (20-31); Chloride 104 mmol/L (98-107); Glucose 80 mg/dL (74-106); Potassium 3.8 mmol/L (3.5-5.1); Total Protein 5.8 g/dL (5.7-8.2)
[2025-04-22 06:26] LABS: Alanine Aminotransferase 71 U/L (7-40); Alkaline Phosphatase 237 U/L (46-116); Blood Urea Nitrogen 7 mg/dL (9-23); Calcium 8.6 mg/dL (8.7-10.4); Sodium 136 mmol/L (136-145)
--- NOTE | 2025-04-22 12:12 | DVH ---
CHEST RADIOGRAPH Indication: R/O Pneumonia Technique: Single frontal view of the chest was obtained COMPARISON: None FINDINGS: Lines and Tubes: None Lungs: Increased interstitial prominence. Pleura: No effusion. No pneumothorax. Cardiomediastinal contours: Unremarkable Bones: Unremarkable IMPRESSION: Possible viral pneumonitis.
--- NOTE | 2025-04-22 14:55 | DVHPN2 ---
Chief Complaints Patient reports: No new complaints Nursing reports: No new complaints Objective Vitals Vital Signs Date Time Temp Pulse Resp B/P (MAP) Pulse Ox O2 Delivery O2 Flow Rate FiO2 04/22/25 11:45 115/79 (91) 04/22/25 11:10 98.4 102 18 95 98.4 04/22/25 07:30 Room Air 04/21/25 17:05 0 99 Medications Current Medications Medications (Trade) Dose Ordered Sig/Shgagy Route PRN Reason Start Time Stop Time Status Last Admin Acetaminophen (Ofirmev) 1,000 mg Q8HPRN PRN IV MODERATE PAIN (4-6 PAIN SCALE) 04/21/25 18:00 04/22/25 17:59 04/22/25 11:15 Cefazolin Sodium 50 ml @ 100 mls/hr Q8H IV 04/21/25 23:30 04/22/25 15:59 04/22/25 07:56 Hydromorphone HCl (Dilaudid Injection) 1 mg Q2HPRN PRN IV MODERATE PAIN (4-6 PAIN SCALE) 04/21/25 20:00 04/22/25 07:56 Lactated Ringer's 1,000 ml @ 125 mls/hr Q8H IV 04/21/25 15:15 04/22/25 11:15 Morphine Sulfate 2 mg Q4HP PRN IV SEVERE PAIN (7-10 PAIN SCALE) 04/21/25 16:30 Ondansetron HCl (Zofran) 4 mg Q4HP PRN IV NAUSEA / VOMITING 04/21/25 16:30 04/21/25 17:30 Piperacillin Sod/ Tazobactam Sod 100 ml @ 25 mls/hr Q8HR IV 04/22/25 14:00 General: Normal Lungs: Normal, Decreased breath sounds Cardiovascular: Normal Abdominal: Soft Extremities: Normal Studies Laboratory Tests 04/22/25 05:41 Test 04/22/25 05:41 Range/Units Serum Glucose 80 74-106 mg/dL Ass/Plan Assessment s/p pcs possible punemonia Plan obtain medicine consult change abx to zosyn Visit Coding OBGYN Date of Service: Apr 22, 2025 Billing Provider: KYLER TAM DO LEATHER STRIPPING MACHINE OPERATOR Common Visit Codes: [id number] OBS CARE (HIGH), [id number] INP/OBS CARE(HIGH) LEATHER STRIPPING MACHINE OPERATOR Procedure Codes: [id number] DELIVERY ONLY YONATANKYLER DO Apr 22, 2025 14:55
[2025-04-22] MEDS: PIPERACILLIN-TAZOB 3.375GM 100 ML IV SCH ×2 (14:56→21:09)
[2025-04-22] MEDS ORDERED: HYDROcodone-ACET 5/325MG TAB PO PRN (15:15)
[2025-04-22] MEDS: IBUPROFEN 800 MG TAB PO PRN (16:38)
[2025-04-22] MEDS: HYDROcodone-ACET 5/325MG TAB PO PRN (18:51)
[2025-04-22] MEDS ORDERED: FERR30CA PO (21:08)
[2025-04-22] MEDS ORDERED: PREN-96 PO (21:08)
[2025-04-22] MEDS: SIMETHICONE 80 MG CHEWABLE TABLET PO SCH (21:46)
[2025-04-22] MEDS: DOCUSATE SOD 100 MG CAP PO SCH (21:46)
[2025-04-23] VITALS (7 sets, daily range): BP systolic 107–129; BP diastolic 60–80; PULSE 73–83; RESP 16–18; TEMP 97.9–99; O2SAT 95–98
--- NOTE | 2025-04-23 00:13 | DVHPN2 ---
Progress Note Date Seen: Apr 23, 2025 Subjective S: bleeding is less, eating food without issues, denies lightheaded/dizziness, pain well controlled with oral medications, no concerns with urinating, passing flatus, no BM yet, ambulating well, vital signs Vital Sign Date Time Temp Pulse Resp B/P (MAP) Pulse Ox O2 Delivery O2 Flow Rate FiO2 04/22/25 19:28 99.1 91 20 116/66 (83) 94 99.1 04/22/25 19:00 Room Air 04/21/25 17:05 0 99 Total Intake and Output 04/22/25 04/22/25 04/23/25 15:00 23:00 07:00 Output Total 1600 ml 700 ml Balance -1600 ml -700 ml medications Current Medications Medications Dose Ordered Sig/Shaggy Route Start Time Stop Time Status Last Admin Dose Admin Lactated Ringer's 1,000 ml @ 125 mls/hr Q8H IV 04/21/25 15:15 04/22/25 11:15 125 MLS/HR Docusate Sodium 100 mg Q12HR PO 04/22/25 22:00 04/22/25 21:46 100 MG Dimethicone 80 mg QID PO 04/22/25 18:00 04/22/25 21:46 80 MG Ibuprofen 800 mg Q8HP PRN PO 04/22/25 15:15 04/22/25 16:38 800 MG Acetaminophen/ Hydrocodone Bitart 1 tab Q4HPRN PRN PO 04/22/25 15:15 Acetaminophen/ Hydrocodone Bitart 2 tab Q4HPRN PRN PO 04/22/25 15:15 04/22/25 23:01 2 TAB Piperacillin Sod/ Tazobactam Sod 100 ml @ 25 mls/hr Q6H IV 04/22/25 21:00 04/22/25 21:09 25 MLS/HR laboratory and microbiology Laboratory Tests 04/22/25 05:41 Test 04/22/25 05:41 Range/Units Serum Glucose 80 74-106 mg/dL Objective O: VSS WNL Chest: heart and lung sounds normal Abd: soft, non-tender, fundus firm at U, active bowel sounds, no rebound or guarding Incision: sylke dressing open to air, C/D/I Ext: Non-tender, No edema Lochia: minimal hospitalist consult complete for pneumonia (see imaging) Problems(with codes): (1) S/P primary low transverse Assessment/Plan A: 19 yo now , POD#2 via primary C/S due to HELLP syndrome Pneumonia Rh status + Breast feeding P: Plan per hospitalist is to continue IV Zosyn and chest Xray in the AM Reevaluate for discharge later in the day CNM co-managing patient with Dr. Parker. Plan discussed with: Patient, Spouse Fluid Accumulation (N/A): N/A Reduced Activity Specialist Strength (Non-Sev: N/A KRISTI MURRAY STUDENTMDW Apr 23, 2025 00:13
[2025-04-23] MEDS ORDERED: ALBUTEROL SULF 2.5 MG/0.5ML(0.5%) NEB SOLN NEB PRN (04:15)
[2025-04-23 04:54] LABS: Hematocrit 25.5 % (36.0-46.0); Hemoglobin 8.4 g/dL (12.2-16.2); Mean Corpuscular Hemoglobin 25.3 pg (28.0-32.0); Mean Corpuscular Volume 76.9 fL (80.0-100.0); Nucleated Red Blood Cells % 0.0 %
[2025-04-23 05:03] LABS: Chloride 102 mmol/L (98-107); Potassium 3.6 mmol/L (3.5-5.1); Sodium 136 mmol/L (136-145)
[2025-04-23 05:04] LABS: Anion Gap 10 (5-15); Carbon Dioxide 24 mmol/L (20-31)
[2025-04-23 05:08] LABS: Calcium 8.2 mg/dL (8.7-10.4)
[2025-04-23 05:09] LABS: Glucose 88 mg/dL (74-106)
[2025-04-23 05:10] LABS: BUN/Creatinine Ratio 11.6 (10.0-20.0)
[2025-04-23 05:14] LABS: Blood Urea Nitrogen 8 mg/dL (9-23)
--- NOTE | 2025-04-23 08:59 | DVH ---
CHEST RADIOGRAPH Indication: Pneumonia Technique: Single frontal view of the chest was obtained COMPARISON: XY CHEST XRAY 1 VIEW on DOS: 04/22/25 FINDINGS: Lines and Tubes: None Lungs: Clear Pleura: No effusion. No pneumothorax. Cardiomediastinal contours: Unremarkable Bones: Unremarkable IMPRESSION: No acute disease.
--- NOTE | 2025-04-24 01:22 | DVHPN2 ---
Progress Note Date Seen: Apr 24, 2025 Subjective Page is sitting up in bed with partner in chair at bedside and baby swaddled in patient's arms. They express excitement about potentially going home in the morning SUBJECTIVE: -Lochia minimal -Regular diet well tolerated. -Ambulating and voiding well w/o feeling dizzy or lightheaded -Pain relieved with oral medication PRN -Passing flatus but no BM yet. - w/o problem -Desires and requests to be discharged home today (04/24) vital signs Vital Sign Date Time Temp Pulse Resp B/P (MAP) Pulse Ox O2 Delivery O2 Flow Rate FiO2 04/23/25 22:59 97.9 79 16 115/72 (86) 98 97.9 04/23/25 19:00 Room Air 04/23/25 11:46 0 21 medications Current Medications Medications Dose Ordered Sig/Shaggy Route Start Time Stop Time Status Last Admin Dose Admin Lactated Ringer's 1,000 ml @ 125 mls/hr Q8H IV 04/21/25 15:15 04/22/25 11:15 125 MLS/HR Docusate Sodium 100 mg Q12HR PO 04/22/25 22:00 04/23/25 19:22 100 MG Dimethicone 80 mg QID PO 04/22/25 18:00 04/23/25 19:22 80 MG Ibuprofen 800 mg Q8HP PRN PO 04/22/25 15:15 04/23/25 04:02 800 MG Acetaminophen/ Hydrocodone Bitart 1 tab Q4HPRN PRN PO 04/22/25 15:15 Acetaminophen/ Hydrocodone Bitart 2 tab Q4HPRN PRN PO 04/22/25 15:15 04/23/25 19:23 2 TAB Albuterol 2.5 mg Q6HPRN PRN NEB 04/23/25 04:15 Amoxicillin/ Clavulanate Potassium 500 mg TID PO 04/23/25 22:00 04/23/25 22:19 500 MG laboratory and microbiology Laboratory Tests 04/23/25 04:37 Test 04/23/25 04:37 Range/Units Serum Glucose 88 74-106 mg/dL Objective OBJECTIVE: -A&O x4. No apparent distress. Affect appropriate -Afebrile, VSS -Chest: heart and lung sounds normal. -Breasts: Nipples intact w/o cracks or soreness -Abdomen: normal BS, soft, non-tender, no rebound or guarding, fundus firm @ U- 1, -Lower abdominal incision site with dressing dry and intact. No edema, erythema or induration -Extremities: no edema or tenderness 04/23/25 chest x ray shows no pneumonia or acute disease Problems(with codes): (1) S/P primary low transverse Assessment/Plan ASSESSMENT 19 yo now Post operative & ppd # 3 s/p Primary Section for HELLP syndrome, doing well. Blood Type: A+ Breast feeding Rubella Immune PLAN -Continue pain management with oral medications as previously ordered. Patient aware of prescription placed for at home if desired -Increase fluid intake and fiber in diet to promote regular bowel movements, Laxative PRN -Educated patient on self-care and warning signs to watch for, including PPH, PPD, infection, and pre-eclampsia -Continue routine care and anticipate discharge today Plan discussed with: Patient, Spouse Visit Coding OBGYN Date of Service: Apr 24, 2025 Billing Provider: MARGIE EGAN CNM RESIDENTIAL FIELD MANAGER Common Visit Codes: [id number] INP/OBS CARE(MOD) MARGIE EGAN CNM Apr 24, 2025 01:22
--- NOTE | 2025-04-24 01:26 | DVHDS2 ---
Obstetrics Discharge Summary Obstetrics Discharge Summary Date of Admission: Apr 21, 2025 Date of Discharge: Apr 24, 2025 Reason For Admission: Section (Primary), Others (Patient presented to Place with epigastric pain and itching. Opted for primary c/s for impending HELLP syndrome. See PeriOp Note for details. Suspected pneumonia on chest x ray and started on zosyn. Repeat x ray showed no issue. No further PP complications. Milestones met as normal) Intrapartum Procedures: (Low Cervical Transverse) Procedures: Antibiotics (for possible viral pneumonia) Discharge Diagnosis: Term -Delivered Discharge Information: Activity (Unrestricted. Advance as tolerated. Balance ac tivities with rest periods. No heavy lifting, pushing or straining. Pelvic rest x 6 weeks), Diet (Routine regular diet rich in fiber, protein, iron and vitamin C with adequate fluid intake.), Medications (See med list), Instructions (Routine), Discharge to (Home), Accompanied by (partner), Discarge date (04/24/2025) Discharge Care Plan Instructions - self care instructions given - emergency signs and symptoms including but not limited to pre-eclampsia precautions and signs of infection, PPH & of PPD reviewed with patient. -Follow up with OB Provider in 1-2 weeks for incision check and again at 6 weeks Visit Coding OBGYN Date of Service: Apr 24, 2025 Billing Provider: MARGIE EGAN CNM SWITCHBOARD MANAGER Common Visit Codes: 40584-GLM/OBS DISCH DAY >30MIN MARGIE EGAN CNM Apr 24, 2025 01:26
[2025-04-24 03:11] VITALS: BP 125/69; PULSE 79; RESP 17; TEMP 98.8; O2SAT 97
[2025-04-24 08:13] VITALS: BP 112/61; PULSE 76; RESP 18; TEMP 98; O2SAT 97
[2025-04-24] MEDS: TETANUS-DIPTH-ACEL PERTUSSIS 0.5ML SYR Tdap IM ONE (10:49)
[2025-04-24 11:00] VITALS: BP 110/69; PULSE 80; RESP 18; TEMP 98; O2SAT 98
--- NOTE | 2025-04-24 13:16 | DVHPN2 ---
Subjective 19-year-old female status post 2 days ago, had some chest pain and shortness of breaths and the chest x-ray showed possible pneumonia however today she is doing better, no cough, no chest pain, no shortness of breaths Repeat chest x-ray was clear no infiltrates She is on room air She is doing incentive spirometry with no difficulty Vital signs are stable No fever Labs showed white count 11.3 yesterday Chemistries are normal Chest x-ray was done yesterday no acute disease The patient is asymptomatic at this time She is cleared for discharge Chest is clear to auscultation bilaterally Heart is regular rate and rhythm at 80 Blood pressure 110/69 No need for antibiotics upon discharge Cleared for discharge Changes from previous H/P or p: Changes Objective Vitals Vital Signs Date Time Temp Pulse Resp B/P (MAP) Pulse Ox O2 Delivery O2 Flow Rate FiO2 04/24/25 11:00 98.0 80 18 110/69 (83) 98 98.0 04/24/25 06:59 Room Air 04/23/25 11:46 0 21 General Appearance: Alert, Oriented X3, Cooperative, No acute distress Lungs: Clear to auscultation Cardiovascular: Regular rate, Normal S1, Normal S2, No murmurs Abdomen: Normal bowel sounds, Soft, No tenderness Extremities: No edema Laboratory Results Laboratory Tests 04/23/25 04:37 Urinalysis Test 04/21/25 12:53 Urine Color Light-yellow (Yellow) Urine Clarity Clear (Clear) Urine pH 6.5 (5.0-9.0) Urine Specific Russell 1.005 (1.001-1.035) Urine Protein Negative (Negative) Urine Ketones Negative (Negative) Urine Blood Negative /uL (Negative) Urine Nitrite Negative (Negative) Urine Bilirubin Negative (Negative) Urine Urobilinogen Normal mg/dL (Negative) Urine Leukocyte Esterase 2+ /uL (Negative) Urine RBC <1 /hpf (0 - 4) Urine Microscopic WBC 6 /HPF (0-5) H Urine Squamous Epithelial Cells Few /hpf (<5) Urine Bacteria Few /hpf (None Seen) H Urine Yeast (Budding) Occasional /hpf (None Urine Creatinine 26.67 mg/dL (30.0-125.0) L Urine Protein/Creatinine Ratio 0.44 Urine Glucose Normal mg/dL (Normal) Urine Total Protein 11.7 mg/dL (1-14) Assessment/Plan Assessment/Plan Chest pain, atypical, musculoskeletal Pneumonia ruled out Thrombocytopenia Microcytic anemia Plan Discharge home No need for antibiotics Plan discussed with: Patient Date of Service: Apr 24, 2025 Billing Provider: GIBSON ARMAS MD Common Visit Codes: [id number] INP/OBS CARE(HIGH) GIBSON ARMAS MD Apr 24, 2025 13:16
== END 2025-04-24 11:46 | disposition home or self-care (01) | DRG 787 ==
LOC: UNDOADMOB 12:00 → LDRP 12:00 → OBSVTOIN 15:04 → LDRP 15:04
PROVIDERS: ADMIT Internal Medicine Geriatric Medicine; ATTEND Internal Medicine Geriatric Medicine
PROC: 10D00Z1 Extraction of Products of Conception, Low, Open Approach (ICD-10-PCS; principal; 2025-04-21 15:51)
DX: O77.0 Labor and delivery complicated by meconium in amniotic fluid (principal); O26.643 Intrahepatic cholestasis of pregnancy, third trimester; O14.24 HELLP syndrome, complicating childbirth; Z37.0 Single live birth; Z3A.39 39 weeks gestation of pregnancy; O99.02 Anemia complicating childbirth; O99.52 Diseases of the respiratory system complicating childbirth; O69.81X0 Labor and delivery complicated by cord around neck, without compression, not applicable or unspecified
CPT/HCPCS: 36415; 71045; 76819; 80048; 80053; 80307; 81001; 81002; 82570; 84156; 84550; 85025; 85384; 85610; 85730; 86780; 86803; 86850; 86900; 86901; 90715; 94760; 94762; 96360; 96361; 96366; 96372; 96374; 96375; G0378; J0131; J0330; J2250; J2405; J2543; J2590; J2704